=== PATIENT | female | born 1955 | race Hispanic/Latino ===

== ENCOUNTER 2024-04-15 10:06 | Emergency (ER) | payer MEDICARE, OTHER ==
[~2024-04-15] VITALS: Ht 167.6 cm; Wt 89.4 kg
[~2024-04-15 10:06] MED LIST: BUPR300T53 PO; CALC-1103 PO; CITA20SO2 PO; FURO-152 PO; METF-446 PO
[2024-04-15] MEDS: PANTOPrazole 40 MG/VIAL IVP ONE (10:19)
[2024-04-15 10:21] LABS: BASOPHILS # (AUTO) 0.03 K/uL (0.00-0.20); BASOPHILS % (AUTO) 0.5 % (0.0-5.0); EOSINOPHILS # (AUTO) 0.11 K/uL (0.00-0.70); EOSINOPHILS % (AUTO) 1.8 % (0.0-8.0); HEMATOCRIT 43.9 % (36-48); IMMATURE GRANULOCYTE ABSOLUTE 0.02 K/uL (0-1); LYMPHOCYTES # (AUTO) 1.8 K/uL (1.0-4.8); LYMPHOCYTES % (AUTO) 28.7 % (21.0-51.0); MEAN CORPUSCULAR HEMOGLOBIN 29.7 pg (27.0-33.0); MEAN CORPUSCULAR HGB CONC 32.6 g/dL (32.0-36.0); MEAN CORPUSCULAR VOLUME 91.1 fL (79-99); MONOCYTES # (AUTO) 0.6 K/uL (0.1-1.0); NEUTROPHILS # (AUTO) 3.6 K/uL (1.8-7.7); NEUTROPHILS % (AUTO) 59.7 % (40.0-77.0); PLATELET COUNT (AUTO) 191 K/uL (130-400); RED BLOOD CELL COUNT(AUTO) 4.82 MIL/uL (4.00-5.50); RED CELL DISTRIBUTION WIDTH 13.2 % (11.0-15.5); WHITE BLOOD COUNT (AUTO) 6.1 K/uL (4.8-10.8)
[2024-04-15 10:32] LABS: CREATININE 1.2 mg/dL (0.5-1.0); POTASSIUM 3.3 mmol/L (3.5-5.1)
[2024-04-15 10:36] LABS: MAGNESIUM 2.1 mg/dL (1.80-2.40)
[2024-04-15 10:39] LABS: INR 0.95 (0.85-1.15); PROTHROMBIN TIME 10.3 SEC (9.6-11.6)
[2024-04-15 10:40] LABS: PARTIAL THROMBOPLASTIN TIME 22.1 SEC (26.3-35.5)
[2024-04-15 11:17] LABS: B-TYPE NATRIURETIC PEPTIDE 45 pg/mL (0-100)
[2024-04-15] MEDS ORDERED: PANT40TA55 PO (11:48)
[2024-04-15 12:07] VITALS: BP 134/68; PULSE 64; RESP 14; TEMP 98.1; O2SAT 99
== END 2024-04-15 12:08 | disposition home or self-care (01) ==
LOC: EDH 10:06
DX: K21.00 Gastro-esophageal reflux disease with esophagitis, without bleeding (principal); I25.10 Atherosclerotic heart disease of native coronary artery without angina pectoris; I11.0 Hypertensive heart disease with heart failure; I50.9 Heart failure, unspecified; Z79.899 Other long term (current) drug therapy; Z88.5 Allergy status to narcotic agent; Z88.8 Allergy status to other drugs, medicaments and biological substances
CPT/HCPCS: 99285; 96374; 71045; 82550; 83735; 84484; 80048; 83880; 85025; 85610; 85730; 36415; 93005 ×2; J2470

== ENCOUNTER 2025-03-15 00:18 | Emergency (ER) | payer MEDICARE ==
[~2025-03-15] VITALS: Ht 167.6 cm; Wt 95.7 kg
[~2025-03-15 00:18] MED LIST changes: +PANT40TA55 PO
[2025-03-15 00:56] LABS: ADD UA MICROSCOPIC YES; APPEARANCE,URINE CLOUDY (CLEAR); GLUCOSE, URINE (UA) NEGATIVE (NEGATIVE); LEUKOCYTE ESTERASE ,URINE 250 Leu/uL (NEGATIVE); NITRATE,URINE NEGATIVE (NEGATIVE); OCCULT BLOOD,URINE SMALL (NEGATIVE)
[2025-03-15 00:58] LABS: SQUAMOUS EPITHELIAL CELL,UR MOD /HPF (0-2)
[2025-03-15 00:59] LABS: CREATININE 1.4 mg/dL (0.5-1.0); GLOMERULAR FILTR. RATE CALC 41.0 mL/min (>90); GLUCOSE,RANDOM 129.0 mg/dL (70-105); SODIUM SERUM 139.0 mmol/L (136-145); UREA NITROGEN, BLOOD 16.0 mg/dL (7-18)
[2025-03-15] MEDS: LACTATED RINGERS 1000ML IV STA (01:06)
[2025-03-15 01:09] LABS: IMMATURE GRANULOCYTE ABSOLUTE 0.06 K/uL (0-1); NUCLEATED RED BLOOD CELLS 0.0 % (0.0-0.19); PLATELET COUNT (AUTO) 267 K/uL (130-400); RED BLOOD CELL COUNT(AUTO) 5.09 MIL/uL (4.00-5.50); RED CELL DISTRIBUTION WIDTH 13.7 % (11.0-15.5); WHITE BLOOD COUNT (AUTO) 15.1 K/uL (4.8-10.8)
--- NOTE | 2025-03-15 01:09 | ERN ---
General Chief Complaint: Abdominal Pain Stated Complaint: C/O ABD W/N X V Time Seen by MD: 00:21 Source: patient History of Present Illness Initial Comments 69-year-old female with abdominal pain nausea vomiting lightheadedness for the last six days. In addition she feels unsteady on her feet if she stands up too quickly. She is also experiencing subxiphoid abdominal pain that goes to her umbilicus and then straight out to her right flank. Prior surgeries include gastric sleeve and cholecystectomy. No fevers or chills normal defecation her urine is extremely dark and tea-colored Timing/Duration: 1 week, getting worse Severity: severe Allergies: Coded Allergies: codeine (Unverified Allergy, Unknown, 02/14/16) lisinopril (Unverified Allergy, Unknown, 04/15/24) Home Meds Active Scripts Pantoprazole Sodium (Protonix) 40 Mg Ectab, 1 TAB PO DAILY for 30 Days, #30 TAB 0 Refills Prov:KENDRA MCMAHON MD 04/15/24 Reported Medications Citalopram Hydrobromide (Citalopram HBr) 20 Mg/10 Ml Solution, 30 MG PO DAILY AT HS, ML 02/14/16 Calcium Phosphate Trib/Vit D3 (Citracal + D3 Gummies) 1 Each Tab.chew, 1 EACH PO DAILY, TAB.CHEW 02/14/16 Furosemide (Lasix) 20 Mg Tablet, 20 MG PO BID, TAB 02/14/16 Bupropion HCl (Wellbutrin Xl) 300 Mg Tab.er.24h, 300 MG PO DAILY, TAB 02/14/16 Metformin HCl (Metformin HCl) 1,000 Mg Tablet, 1000 MG PO BIDAC, TAB 02/14/16 Past Medical History Past Medical History: Anxiety, Depression, Other Medical History Other: CHRONIC CONSTIPATION; HEART ARRYTHMIA (PVC); SLEEP APNEA Past Surgical History: Other Surgical History Other: TUBAL LIGATION; UTERINE ABLATION; GASTRIC SLEEVE; cholecystectomy Constitutional: (-) chills, (-) diaphoresis, (-) fever, (-) malaise, (-) weakness, (-) other documentation EENTM: (-) eye pain, (-) blurred vision, (-) tearing, (-) double vision, (-) ear pain, (-) ear discharge, (-) nose pain, (-) nose congestion, (-) throat pain, (-) Throat swelling, (-) mouth pain, (-) tooth pain, (-) mouth swelling, (-) other documentation Respiratory: (-) cough, (-) orthopnea, (-) short of breath, (-) stridor, (-) wheezing, (-) other documentation Cardiovascular: (-) chest pain, (-) edema, (-) palpitations, (-) syncope, (-) dyspnea on exertion, (-) other documentation Gastrointestinal/Abdominal: (+) nausea, (+) vomiting, (+) abdominal pain Genitourinary: (-) vaginal discharge, (-) vaginal bleeding, (-) dysuria, (-) frequency, (-) hematuria, (-) pain, (-) other documentation Musculoskeletal: (-) Neck pain, (-) back pain, (-) Flank Pain, (-) joint pain, (-) joint swelling, (-) muscle pain, (-) muscle stiffness, (-) gout, (-) other documentation Skin: (-) laceration, (-) contusion, (-) abrasion, (-) abscess, (-) rash, (-) change in color, (-) change in hair, (-) change in nails, (-) diaphoresis, (-) dryness, (-) other documentation Physical Exam General Appearance: (+) mild distress Orientation: (+) alert, (+) oriented x 3 Head/Face Trauma: No Eye: bilateral eye normal inspection, bilateral eye PERRL, bilateral eye EOMI Ear, Nose, Throat: (+) hearing grossly normal, (+) normal ENT inspection, (+) moist mucous membraine Neck: (+) normal inspection, (+) supple, (+) full range of motion Respiratory: (+) chest non-tender, (+) lungs clear, (+) well ventilated Heart: (+) regular, (+) no gallop Vascular: (+) no edema, (+) normal peripheral pulse Gastrointestinal: (+) soft, (+) non-tender, (+) bowel sound present Results Laboratory and Microbiology Lab and Micro Result Laboratory Tests Test 03/15/25 00:40 03/15/25 00:41 Urine Color YELLOW (YELLOW) Urine Appearance CLOUDY (CLEAR) H Urine pH 5.5 (5.0-8.0) Urine Specific [place] 1.031 (1.001-1.031) Urine Protein 20 mg/dL (NEGATIVE) H Urine Glucose (UA) NEGATIVE mg/dL (NEGATIVE) Urine Ketones 40 mg/dL (NEGATIVE) H Urine Occult Blood SMALL (NEGATIVE) H Urine Nitrate NEGATIVE (NEGATIVE) Urine Bilirubin 0.5 mg/dL (NEGATIVE) H Urine Urobilinogen 0.2 mg/dL (0.2-1.0) Urine Leukocyte Esterase 250 Eliza/uL (NEGATIVE) H Urine RBC 26-50 /HPF (0-1) H Urine WBC 2-5 /HPF (0-1) H Urine Squamous Epithelial Cells MOD /HPF (0-2) Urine Bacteria RARE /HPF (None Seen) White Blood Count 15.1 K/uL (4.8-10.8) H Red Blood Count 5.09 MIL/uL (4.00-5.50) Hemoglobin 15.1 g/dL (12.0-16.0) Hematocrit 44.0 % (36-48) Mean Corpuscular Volume 86.4 fL (79-99) Mean Corpuscular Hemoglobin 29.7 pg (27.0-33.0) Mean Corpuscular Hemoglobin Concent 34.3 g/dL (32.0-36.0) Red Cell Distribution Width 13.7 % (11.0-15.5) Platelet Count 267 K/uL (130-400) Mean Platelet Volume 11.1 fL (7.5-10.5) H Immature Granulocyte % (Auto) 0.4 % (0-1) Neutrophils (%) (Auto) 86.6 % (40.0-77.0) H Lymphocytes (%) (Auto) 6.5 % (21.0-51.0) L Monocytes (%) (Auto) 5.7 % (3.0-13.0) Eosinophils (%) (Auto) 0.5 % (0.0-8.0) Basophils (%) (Auto) 0.3 % (0.0-5.0) Neutrophils # (Auto) 13.0 K/uL (1.8-7.7) H Lymphocytes # (Auto) 1.0 K/uL (1.0-4.8) Monocytes # (Auto) 0.9 K/uL (0.1-1.0) Eosinophils # (Auto) 0.08 K/uL (0.00-0.70) Basophils # (Auto) 0.05 K/uL (0.00-0.20) Absolute Immature Granulocyte (auto 0.06 K/uL (0-1) Nucleated Red Blood Cells 0.0 % (0.0-0.19) Sodium Level 139 mmol/L (136-145) Potassium Level 3.2 mmol/L (3.5-5.1) L Chloride Level 101 mmol/L (101-111) Carbon Dioxide Level 28 mmol/L (21-32) Blood Urea Nitrogen 16 mg/dL (7-18) Creatinine 1.4 mg/dL (0.5-1.0) H Glomerular Filtration Rate Calc 41 mL/min (>90) Random Glucose 129 mg/dL (70-105) H Total Calcium 9.4 mg/dL (8.5-10.1) Magnesium Level 2.10 mg/dL (1.80-2.40) Lipase 32 U/L (16-77) MDM MDM: Differential diagnosis: Choledocholithiasis, gastritis, dehydration, UTI, electrolyte abnormalities Rationale: Tests considered and ordered secondary to shared decision making include: Previous outside records reviewed: Old ER visits. Risk of complication and/or morbidity or mortality of patient management: None Medications-Per medication reconciliation Need for hospitalization: Patient does meet criteria for hospitalization. Need for emergency major/minor surgery: No There are no social concerns with this patient. Prescription drug management Prescriptions will include symptomatic care Patient's prior external medical records from other ER visits were reviewed by me as indicated. Prior testing and results from previous visits were reviewed. Prior tests were taken into account with medical decision making and resource utilization, independent historian/historians were used to obtain complete medical history. I independently interpreted the test that were performed, results were reviewed by me and considered findings on radiology if ordered. Patient's laboratory analysis is consistent with either severe dehydration or a urinary tract infection. Patient is adamant that she does not have a urinary tract infection. I will send a prescription for Macrobid to her pharmacy and she can fill it as she wishes. Once she has received her 2 L of fluid I will discharge her from the ED. she has received 1 L and she says it is already helping her feel better. ED Course Orders Procedure Category Date Status Time Vital Signs Per CPOE 03/15/25 Transmitted Routine 00:35 Saline Lock Iv CPOE 03/15/25 Transmitted 00:35 Cbc With Differential LAB 03/15/25 In Process 00:35 Lipase LAB 03/15/25 Complete 00:35 Urinalysis Profile LAB 03/15/25 Complete 00:35 Basic Metabolic Panel LAB 03/15/25 Complete 00:35 Lactated Ringers PHA 03/15/25 Complete 1000ml (Lactated 00:53 Orphenadrine Citrate PHA 03/15/25 Complete (Norflex) 01:00 Magnesium LAB 03/15/25 Complete 00:53 Culture Urine NIKO 03/15/25 In Process 00:57 Ondansetron 4mg Inj PHA 03/15/25 Complete (Zofran 4mg Inj) 01:10 Ondansetron 4mg Inj PHA 03/15/25 Complete (Zofran 4mg Inj) 01:30 Current Medications Medications (Trade) Dose Ordered Sig/Dariel Route PRN Reason Start Time Stop Time Status Last Admin Dose Admin Lactated Ringer's (Lactated Ringers 1000ml) 2,000 ml BOLUS STAT IV 03/15/25 00:53 03/15/25 01:00 DC 03/15/25 01:06 Ondansetron HCl (zoFRAN 4MG INJ) 4 mg ONCE ONCE IVP 03/15/25 01:30 03/15/25 01:31 DC 03/15/25 01:20 Ondansetron HCl (zoFRAN 4MG INJ) 4 mg STK-MED ONCE .ROUTE 03/15/25 01:10 03/15/25 01:11 DC Orphenadrine Citrate (Norflex) 60 mg ONCE ONCE IVP 03/15/25 01:00 03/15/25 01:01 DC 03/15/25 01:19 Vital Signs Date Time Temp Pulse Resp B/P (MAP) Pulse Ox O2 Delivery O2 Flow Rate FiO2 03/15/25 00:45 99.3 90 20 121/60 98 Room Air* 0 21 03/15/25 00:19 99.5 94 20 113/75 97 Room Air DX & DISP Disposition: Discharge Departure Impression: Primary Impression: Dehydration Additional Impression: Urinary catheter infection Condition: Stable Scripts Nitrofurantoin Macrocrystal (Nitrofurantoin) 100 Mg Capsule 1 CAP PO BID for 7 Days, #14 CAP 0 Refills Prov: PATEL ISLAS MD 03/15/25 Additional Instructions: You have either a severe dehydration or a urinary tract infection or both. I have given you 2 L of fluid and you feel better suggesting dehydration. There is inflammation in your bladder which could be from bacteria or from concentrated urine irritating her bladder wall. I have sent a prescription for antibiotics to your pharmacy. You can choose to fill the prescription or not as you feel necessary. In the meantime try to drink as much fluid as you can each day so that your urine runs clear at least once a day. Referrals: JONES JEFF MD (PCP) PATEL ISLAS MD Mar 15, 2025 01:09
[2025-03-15] MEDS: ORPHENADRINE 60MG/2ML IVP ONE (01:19)
[2025-03-15] MEDS ORDERED: NITR100C PO (01:50)
[2025-03-15 01:56] LABS: WBC MORPHOLOGY CONSISTENT W/DIFF
[2025-03-15] MEDS: LIDOCAINE HCL 2% VISCOUS 15 ML UDCUP PO ONE (02:00)
[2025-03-15] MEDS: MAG/ALUM/SIMETH 30 ML UDCUP PO ONE (02:00)
[2025-03-15] MEDS: DICYCLOMINE HCL 10 MG/5 ML ML PO ONE (02:00)
[2025-03-15 02:38] VITALS: BP 104/57; PULSE 85; RESP 18; TEMP 98.3; O2SAT 98
== END 2025-03-15 03:04 | disposition home or self-care (01) ==
LOC: EDH 00:18
DX: E86.0 Dehydration (principal); T83.518A Infection and inflammatory reaction due to other urinary catheter, initial encounter; F41.9 Anxiety disorder, unspecified; F32.A Depression, unspecified; Z79.899 Other long term (current) drug therapy; Z88.5 Allergy status to narcotic agent; Z88.8 Allergy status to other drugs, medicaments and biological substances; Z90.49 Acquired absence of other specified parts of digestive tract; Z98.51 Tubal ligation status; Y82.8 Other medical devices associated with adverse incidents; Y92.89 Other specified places as the place of occurrence of the external cause
CPT/HCPCS: 99284; 96374; 96375; 83735; 80048; 83690; 85025; 87086; 81001; 36415; J2405; J2360